=== PATIENT | male | born 1950 | race Caucasian/White ===

== ENCOUNTER 2016-06-16 06:08 | Observation (INO) | payer MEDICARE, OTHER ==
[~2016-06-16] VITALS: Ht 188 cm; Wt 112.6 kg
--- NOTE | ~2016-06-16 | ER ---
PATIENT'S NAME: ROBERTO QUINN [facility] AGE: 65 Y [address] ROOM: [place] [address] LOCATION: [facility] ADMIT DATE: 06/16/2016 ER/Outpatient Report DISCHARGE DATE: FAMILY PHYSICIAN: PHYSICIAN, NO ATTENDING PHYSICIAN: Liu Del Castillo Admission date and time documented on the medical record. I saw the patient at 0625 hours. CHIEF COMPLAINT: Right flank pain. HISTORY OF PRESENT ILLNESS: The patient is a 65-year-old male, who has had right flank pain since this past Monday and Monday, . The patient saw Dr. Allen, urologist in [place], Monday. He has a mid to distal right ureteral stone. He was placed on Flomax, pain medications, and was told to come to the emergency room at [facility] if he had further problems. The patient showed up this morning with persistent right flank pain, not getting any better. He is not having any dysuria, frequency, or urgency. He continues to have right flank, right groin pain. He has some nausea with one episode of vomiting. No diarrhea. Again, no urinary symptomatology. No chest pain, shortness of breath. No lightheadedness, dizziness, syncope, or near syncope. No headache, eyes, ears, nose, throat, neck, or spine pain. No fall or trauma. No recent colds, coughs, flus, fever, chills, or sweats. No joint or muscle swelling, redness, or pain. No skin eruptions or rash. No history of neuro changes, or psych issues. Does have yxg-dkufhzt-ohlnilatf diabetes mellitus. HOME MEDICATIONS: See attached medication list. ALLERGIES: NONE. SOCIAL HISTORY: Nonsmoker and nondrinker. SIGNIFICANT PAST MEDICAL HISTORY: Mwv-omahpyt-reitppujf diabetes mellitus, dyslipidemia, nephrolithiasis, and colitis. OPERATIONS: None. REVIEW OF SYSTEMS: PATIENT'S NAME: ROBERTO QUINN [facility] AGE: 65 Y [address] ROOM: [address] [address] LOCATION: [facility] ADMIT DATE: 06/16/2016 ER/Outpatient Report DISCHARGE DATE: FAMILY PHYSICIAN: PHYSICIAN, NO ATTENDING PHYSICIAN: Liu Del Castillo All systems reviewed by me are negative with the exception of those discussed in the history of present illness. PHYSICAL EXAMINATION: VITAL SIGNS: Vital signs are reviewed by me on the nurse's chart. See nurse's chart. HEAD: Normocephalic. EYES, EARS, NOSE, AND THROAT: Clear. Mucous membranes moist. NECK: No nuchal rigidity. No findings of adenopathy. No tenderness. SPINE: Nontender. No deformity. LUNGS: Clear. Good air flow. No rales, rhonchi, or wheezes. HEART: Regular. Pulses are palpable. No chest wall or ribcage pain to palpation. ABDOMEN: Soft, nondistended. Some right flank tenderness. No true abdominal pain, guarding, rigidity, rebound, or tenderness. Bowel tones present. No organomegaly or abnormal mass palpable. No true CVA tenderness. EXTREMITIES: Without peripheral edema, cyanosis, or deformity. NEUROVASCULARLY: Intact. SKIN: Clear. No skin eruptions or rash. LABORATORY DATA: CMS was normal except an elevated glucose 135, elevated BUN of 29, elevated creatinine 1.4, and low GFR of 51. White count was 9300, 71 segs, 20 lymphs, 7 monos, 1 eo, and 1 baso. Hemoglobin is 15.5, hematocrit 46.8, and platelet count is 279,000. Urine has not been able to be obtained as yet. CT scan of the abdomen and pelvis with renal stone protocol showed a moderate right hydronephrosis secondary to a distal right 4 x 3 mm right ureteral calculus. The patient has a small nonobstructive left intrarenal calculi. Has diffuse fatty liver, indeterminate 6 mm left lower lobe pulmonary nodule. EMERGENCY DEPARTMENT COURSE: I did start the patient on IV normal saline, fluids. Gave him Toradol 30 mg IV for pain; Zofran 4 mg IV for nausea, vomiting; Dilaudid 1 mg IV for pain. Gave him IV normal saline, fluids at 100 mL an hour. Discussed the patient with Dr. Allen urologist. Dr. Allen wanted the patient admitted outpatient for cystoscopy and stone extraction. IMPRESSION: 1. Right flank pain secondary to a distal right 4 x 3 mm ureteral stone with moderate hydronephrosis, hematuria. 2. Ncm-tiarufj-oygyykvce diabetes mellitus. 3. Dyslipidemia. 4. Renal insufficiency. PATIENT'S NAME: ROBERTO QUINN [facility] AGE: 65 Y [address] ROOM: [address] [address] LOCATION: [facility] ADMIT DATE: 06/16/2016 ER/Outpatient Report DISCHARGE DATE: FAMILY PHYSICIAN: PHYSICIAN, SAUMYA ATTENDING PHYSICIAN: Liu Del Castillo PLAN: The patient was admitted to the hospital outpatient observation. The patient will undergo cystoscopy with stone extraction per Dr. Allen, urologist. I did discuss the patient with Dr. Del Castillo, hospitalist. Dr. Del Castillo will admit the patient to the hospital med/surg. Discussion with the patient concerning my findings and recommendations, he understands. MD COLE WYLIE/modl /[id number] d: 06/16/16 1426 t: 06/17/16 0610, OUTPATIENT REPORT
--- NOTE | ~2016-06-16 | HP ---
PATIENT'S NAME: ROBERTO QUINN [facility] AGE: 65 Y [address] ROOM: [place] [address] LOCATION: [facility] ADMIT DATE: 06/16/2016 History & Physical DISCHARGE DATE: FAMILY PHYSICIAN: PHYSICIAN, NO ATTENDING PHYSICIAN: Liu Del Castillo DATE OF SERVICE: CHIEF COMPLAINT: Right flank pain with ureterolithiasis. HISTORY OF PRESENTING ILLNESS: This 65-year-old white male, with a previous history of recurrent ureterolithiasis, ntx-rqfdlpu-kjlzshpim diabetes mellitus, and hyperlipidemia, came to the emergency department this morning with persistent right flank pain. He had actually been seen and evaluated at [place] a couple of days ago by Urology. CT scan demonstrated a right ureteral stone, and it was felt that the stone would likely pass on its own with conservative care. Because of recurrent cramping and aching pain not well controlled with oral hydrocodone, he decided to come to the emergency room for definitive evaluation and management. He denies fever, chills, or sweats. He denies headaches, dizziness, or lightheadedness. He has not had any significant chest pain. He does get short of breath with exertion, but this is not a new problem. Appetite has been good. He eats and drinks normally. No problems with chewing or swallowing. No shima abdominal pain. He stools normally and has been voiding normally. He denies noticing any blood in his stools or black, tarry stools. No dysuria or urgency. He denies numbness, tingling, or weakness in his extremities or any associated physical or constitutional complaints. He does relate that he has not been sleeping well. He complains that he cannot breathe when he lays on his back. PAST MEDICAL HISTORY: ALLERGIES: NO KNOWN DRUG ALLERGIES. ILLNESSES: 1. Nephrolithiasis. 2. Diabetes mellitus, type 2. 3. Hyperlipidemia. CURRENT MEDICATIONS: PATIENT'S NAME: ROBERTO QUINN [facility] AGE: 65 Y [address] ROOM: [place] [address] LOCATION: [facility] ADMIT DATE: 06/16/2016 History & Physical DISCHARGE DATE: FAMILY PHYSICIAN: PHYSICIAN, NO ATTENDING PHYSICIAN: Liu Del Castillo 1. Aspirin 81 mg p.o. daily. 2. Fish oil 1200 mg p.o. daily. 3. Hydrocodone p.r.n. 4. Flomax 0.4 mg p.o. daily. 5. Metformin 850 mg p.o. b.i.d. FAMILY HISTORY: Significant for heart disease in his father who of an IL in his 50s. Mother had diabetes mellitus and Alzheimer disease. SOCIAL HISTORY: He is and lives in [place]. He is currently retired. He has about a 38-mvtb-oyfs history of smoking tobacco, but has been quit for 9 years. Only occasional alcohol use. REVIEW OF SYSTEMS: As per HPI. All other organ systems reviewed and are negative. PHYSICAL EXAMINATION: VITAL SIGNS: Temperature 96, pulse 66, respirations 18, blood pressure 166/74, and O2 saturation 95% on room air. GENERAL: He is very pleasant, cooperative, lying in the bed, in no acute distress. Pain is 2/10 in the right flank. SKIN: Supple, pink, warm, and dry. No obvious rashes. HEENT: Otherwise, normocephalic. Sclerae are nonicteric. Pupils are equal, round, and reactive to light and accommodation. Extraocular movements appear intact. Nasal turbinates normal in appearance. Oropharynx is clear. Mucous membranes are pink and moist. Dentition appears intact. NECK: Supple. No masses or adenopathy. No thyromegaly. No JVD. CHEST WALL: Symmetrical. HEART: Regular without murmurs. LUNGS: Coarse, but diminished. No crackles or wheezes are heard. ABDOMEN: Soft, obese, and nontender. Bowel sounds are present. No masses or hepatosplenomegaly. GENITOURINARY: Not done. RECTAL: Not done. EXTREMITIES: Display no significant clubbing, cyanosis, or edema. NEUROLOGICAL: No focal deficits. LABORATORY AND X-RAY DATA: CBC showed a white blood cell count of 9.3, hemoglobin is 15.5, hematocrit 46.8, and platelets 279. Chemistries revealed BUN and creatinine of 29 and 1.4 respectively, sodium and potassium 140 and 4.2, chloride and CO2 are 107 and 23, calcium is 8.8. AST and ALT 25 and 26. Bilirubin is 0.8. Glucose is minimally elevated at 135. Urinalysis is pending. CT scan per renal stone PATIENT'S NAME: ROBERTO QUINN [facility] AGE: 65 Y [address] ROOM: [facility] [place], [place] [address] LOCATION: [facility] ADMIT DATE: 06/16/2016 History & Physical DISCHARGE DATE: FAMILY PHYSICIAN: PHYSICIAN, NO ATTENDING PHYSICIAN: Liu Del Castillo protocol demonstrates a right mid ureteral stone approximately 4 x 3 mm with associated obstruction and hydronephrosis. ASSESSMENT AND PLAN: 1. Severe right flank pain. We will admit for observation. He already got some relief with IV Dilaudid in the emergency room. We will continue with supportive cares including IV fluids and symptomatic measures including continued IV Dilaudid for relief of pain and Zofran for relief of nausea. 2. Ureterolithiasis with hydronephrosis. We will consult Urology, Dr. Allen. He will likely go for cystoscopy later today. 3. Acute kidney injury secondary to obstructive uropathy. As above, we will hydrate him gently. Continue with normal saline at 100 mL/hour and await urology evaluation and intervention. 4. Diabetes mellitus, type 2. Historically, well controlled. We will utilize Accu-Cheks and sliding scale insulin while he is inpatient. He is going to remain n.p.o. for now. 5. Hyperlipidemia. Continue fish oil. 6. Sleep disturbance. Suggested to him that he should follow up with his primary care provider at the [place] and to consider sleep study and/or additional cardiovascular workup on an outpatient basis. 7. Deep venous thrombosis prophylaxis. We will utilize pneumatic compression devices while he is inpatient. MD FREDI ROSAS/isaiah /[id number] D: 521 T: 608 HISTORY & PHYSICAL
--- NOTE | ~2016-06-16 | DS ---
PATIENT'S NAME: ROBERTO QUINN [facility] AGE: 65 Y [address] ROOM: [id number] [place], [place] [address] LOCATION: [facility] ADMIT DATE: 06/16/2016 Discharge Summary DISCHARGE DATE: 06/17/2016 FAMILY PHYSICIAN: PHYSICIAN, NO ATTENDING PHYSICIAN: Liu Del Castillo FINAL DIAGNOSES: 1. Right renal calculi. 2. Acute kidney injury, secondary to obstructive uropathy. 3. Diabetes mellitus. CONSULTANTS ON THE CASE: Dr. Allen. HOSPITAL COURSE: Please see details of admission in H and P by Dr. Del Castillo. The patient was admitted with a right nephroureterolithiasis and pain. He was started on IV fluids and Dilaudid for pain control. His blood sugars were covered with insulin sliding scale and pneumatics were utilized for DVT prophylaxis. Dr. Allen consulted on the patient and felt he should undergo cystoscopy and stent placement with possible laser lithotripsy. The patient was taken down on 06/16/2016 and underwent stent placement with stone extraction. He tolerated the procedure well. He was brought back to the floor. His night was uneventful. He needed no narcotic pain medications. On the day of 06/17/2016, the patient was felt stable for discharge, and was discharged home in stable condition. DIAGNOSTICS: On admission, CBC shows a white blood cell count of 9.3, hemoglobin 15.5, hematocrit 46.8, and platelets 279. Sodium 140, potassium 4.2, chloride 107, bicarb 23, glucose 135, BUN 29, and creatinine 1.4. Hemoglobin A1c was 6.7%. Accu-Cheks ranged from 84 to 199. On the day of discharge, creatinine remained at 1.4. RADIOLOGY REPORT: CT of the abdomen and pelvis shows moderately obstructing 4- mm stone in the distal right ureter at the level of the pelvic inlet, moderate perinephric edema seen on the right as well. DISCHARGE INSTRUCTIONS: The patient is discharged home and follow up with Dr. Orellana on 06/22/2016. He needs to have BMP drawn at that appointment as well. Follow up with Dr. Allen on 06/28/2016, for cystoscopy and stent removal. Activity is as tolerated. Weightbearing status is as tolerated. Diet is diabetic. DISCHARGE MEDICATIONS: 1. Flomax 0.4 mg daily. 2. Metformin 1000 mg twice daily. 3. Pravastatin 40 mg daily. PATIENT'S NAME: ROBERTO QUINN [facility] AGE: 65 Y [address] ROOM: [address] [place] [id number] LOCATION: [facility] ADMIT DATE: 06/16/2016 Discharge Summary DISCHARGE DATE: 06/17/2016 FAMILY PHYSICIAN: , SAUMYA ATTENDING PHYSICIAN: Liu Del Castillo 4. Aspirin 81 mg daily. 5. Fish oil 1200 mg daily. We do appreciate participating in this patient's care and thank you very much for the ability to serve him while hospitalized at [facility]. Time spent coordinating details of discharge was less than 30 minutes of which was spent coordinating with consulting physicians, care management, completion of medication reconciliation, and education to the patient and family on the above-mentioned diagnoses. JULIANO SIN FOR TERESSA HATHAWAY MD ANSHUL/modl /[id number] d: 06/18/16518 t: 06/21/16 1451, DISCHARGE SUMMARY
--- NOTE | ~2016-06-16 | CON ---
PATIENT'S NAME: ROBERTO QUINN [facility] AGE: 65 Y [address] ROOM: [place] [address] LOCATION: [facility] ADMIT DATE: 06/16/2016 Consultation DISCHARGE DATE: FAMILY PHYSICIAN: PHYSICIAN, NO ATTENDING PHYSICIAN: Liu Del Castillo DATE OF CONSULTATION: 06/16/2016 REFERRING PHYSICIAN: KENTON TRACY MD CHIEF COMPLAINT: Right flank pain. HISTORY OF PRESENT ILLNESS: The patient is a pleasant 65-year-old male, who presented with acute onset of right flank pain this morning. The patient does have a history of recurrent nephrolithiasis and has required interventions in the past for stones that he has not been able to pass on his own. The patient was recently seen in the emergency room in [place] on June 13, 2016, with right flank pain where he was found to have a 3 x 5 mm ureteral calculus in the right ureter causing hydronephrosis as well as a small nonobstructing left nephrolithiasis. At that time, the patient had opted for observation with conservative management, and I had seen him in clinic on June 14, 2016, where we had kept him on some tamsulosin with a trial of stone passage and pain control. The patient is obviously not doing well with pain control and was admitted for IV narcotic medication requirement earlier today by the hospitalist team. His white blood cell count was within normal limits at 9.3, and his serum creatinine level was slightly up at 1.4. He had a urinalysis on June 13, 2016, with only rare bacteria and was negative for nitrites and leukocytes. The patient, otherwise, has no further questions or concerns at this time. PAST MEDICAL HISTORY: 1. Recurrent nephrolithiasis. 2. Diabetes mellitus. 3. Hyperlipidemia. PAST SURGICAL HISTORY: 1. Prior ureteroscopy with stone extraction. 2. Right arm surgery. 3. Hernia repair. FAMILY HISTORY: The patient denies any known family history of genitourinary abnormalities or malignancy. SOCIAL HISTORY: PATIENT'S NAME: ROBERTO QUINN [facility] AGE: 65 Y [address] ROOM: [place] [address] LOCATION: [facility] ADMIT DATE: 06/16/2016 Consultation DISCHARGE DATE: FAMILY PHYSICIAN: PHYSICIAN, NO ATTENDING PHYSICIAN: Liu Del Castillo The patient is retired and quit smoking nine years ago. He denies any alcohol use. ALLERGIES: NO KNOWN DRUG ALLERGIES. MEDICATIONS: See hospitalization medication reconciliation. REVIEW OF SYSTEMS: A full 10 plus point review of systems was performed with pertinent positive and negative findings included in the History of Present Illness. All other systems were reviewed and are otherwise negative. PHYSICAL EXAMINATION: VITAL SIGNS: The patient's height is 6 feet 2 inches. His weight is 247 pounds. His temperature is 97.9 degrees Fahrenheit, pulse of 49, blood pressure 135/72, respiratory rate 14, and oxygen saturation 93% on room air. CONSTITUTIONAL: The patient is in mild distress, but he is awake and oriented. HEENT: Extraocular muscles are intact. Mucous membranes are moist. No drainage per ears or nose. CARDIAC: Good peripheral perfusion. RESPIRATORY: No audible wheezing or stridor. ABDOMEN: Soft, nontender, and nondistended. MUSCULOSKELETAL: Moves all extremities. NEUROLOGIC: No focal deficits noted. HEMATOLOGIC: No bruises. No active sites of bleeding. PSYCHIATRIC: Normal affect and answers questions appropriately. IMAGING: I personally reviewed the images from his recent CT scan, consistent with findings noted above in History of Present Illness. IMPRESSION: 4 mm distal right ureteral calculus. PLAN: I had a long discussion today with the patient regarding his treatment options for his distal right ureteral calculus. His options again to include observation, ureteroscopy with laser lithotripsy and stent placement. He has not been doing well with the trial of stone passage with continued pain, now requiring IV narcotics. The patient would like to proceed with operative intervention. We will plan to take him back to the operating room again for right ureteroscopy, laser lithotripsy, ureteroscopic stone extraction, and PATIENT'S NAME: ROBERTO QUINN [facility] AGE: 65 Y [address] ROOM: [address] [address] LOCATION: [facility] ADMIT DATE: 06/16/2016 Consultation DISCHARGE DATE: FAMILY PHYSICIAN: PHYSICIAN, NO ATTENDING PHYSICIAN: Liu Del Castillo stent placement. His questions and concerns were addressed, and he has no further at this time. MD MAG SPRING/isaiah /[id number] d: 06/16/16 2337 t: 06/17/16 2240, CONSULTATION REPORT
--- NOTE | ~2016-06-16 | OR ---
PATIENT'S NAME: ROBERTO QUINN [facility] AGE: 65 Y [address] ROOM: [address] [place], [place] [address] LOCATION: [facility] ADMIT DATE: 06/16/2016 OR/Procedure Report DISCHARGE DATE: FAMILY PHYSICIAN: PHYSICIAN, NO ATTENDING PHYSICIAN: Liu Del Castillo SURGEON: Kenton Allen MD ELECTRIC WIRER: None. DATE OF PROCEDURE: 06/16/2016 PREOPERATIVE DIAGNOSIS: Right distal ureteral calculus. POSTOPERATIVE DIAGNOSIS: Right distal ureteral calculus. OPERATIVE PROCEDURE: 1. Right ureteroscopy with laser lithotripsy of ureteral stone. 2. Right ureteroscopy with ureteroscopic stone extraction. 3. Cystoscopy with placement of indwelling right ureteral stent. ANESTHESIA: Laryngal mask airway anesthesia. INDICATIONS FOR PROCEDURE: The patient is a pleasant 65-year-old male with history of recurrent nephrolithiasis, who recently presented with a 5 mm right ureteral calculus. The patient was not doing well with a trial of stone passage and opted for surgical intervention. The patient was explained the risks, benefits, indications, and alternatives to above procedure and wished to proceed and consented freely. DESCRIPTION OF OPERATION: The patient was brought back to the operating room, where he was placed on the OR table in the supine position. A surgical time- out was called where the patient identification, surgical site, and procedure was then verified. The patient underwent successful administration of laryngal mask airway anesthesia. The patient was then moved and placed in a low lithotomy position where his genital area was then prepped and draped in usual sterile fashion. I began by advancing a rigid cystoscope easily into the patient's urinary bladder. His anterior urethra was within normal limits. His posterior urethra was notable for ddpbecsk-yg-khdmbs bilobar hyperplasia of the prostate. He did not have a median prostatic lobe. His bladder was negative for any bladder tumors, cellules, or diverticula. He did have a moderate bladder trabeculations noted throughout. His ureteral orifices were noted to be in their orthotopic location. I then carefully advanced a Sensor guidewire cannulating the patient's right ureteral orifice. I then emptied the patient's bladder and then re-entered with a rigid ureteroscope. I was able to carefully navigate into his right distal ureter utilizing a second guidewire. I came across the distal stone, which appear to be too large to extract in whole and so I opted to use the holmium laser fiber, 600 micron PATIENT'S NAME: ROBERTO QUINN [facility] AGE: 65 Y [address] ROOM: [address] [address] LOCATION: [facility] ADMIT DATE: 06/16/2016 OR/Procedure Report DISCHARGE DATE: FAMILY PHYSICIAN: PHYSICIAN, NO ATTENDING PHYSICIAN: Liu Del Castillo fiber to carefully fragment the stone into several smaller pieces. I then used the Melvin stone basket to carefully entrap the fragments and these were sent for stone analysis. I carefully surveyed the ureter again and there was no evidence of any ureteral injury nor was there any evidence of any large residual stones remaining. Then, over the remaining wire, I advanced a 4.8- Burundian multi-length ureteral stent deploying it noting good curl fluoroscopically in the patient's right renal collecting system as well as a good curl fluoroscopically and visually within the patient's bladder. I then emptied the patient's bladder and the patient then taken out of the lithotomy position where he was then awoken from general anesthesia, extubated, and transferred to recovery bed and transported to the recovery room in good condition. COMPLICATIONS: None. DRAINS: Indwelling 4.8-Burundian multi-length right ureteral stent. SPECIMEN: Stone for stone analysis. FOLLOWUP PLAN: We will plan to have the patient follow back up in Urology Clinic in [place], June 28, 2016 for cystoscopy and stent removal. KENTON ALLEN MD GP/modl /[id number] d: 06/17/16 004 t: 06/17/16 2243, OPERATIVE SUMMARY
[2016-06-16 06:39] LABS: BASOPHIL # 0.1 K/uL (0.0-0.2); BASOPHIL % 0.8 %; EOSINOPHIL # 0.1 K/uL (0.0-0.5); EOSINOPHIL % 0.6 %; HEMATOCRIT 46.8 % (37.0-53.0); HEMOGLOBIN 15.5 g/dL (11.0-16.0); IMMATURE GRANULOCYTE % 0.2 %; LYMPHOCYTE # 1.9 K/uL (0.8-4.0); LYMPHOCYTE % 20.4 %; MCH 27.1 pg (27.0-34.0); MCHC 33.1 gm/dL (32.0-36.5); MONOCYTE # 0.7 K/uL (0.0-1.0); MONOCYTE % 7.4 %; NEUTROPHIL # (ANC) 6.6 K/uL (1.4-9.0); NEUTROPHIL % 70.6 %; NRBC % 0 /100WBC (0-0.00); PLATELET COUNT 279 K/uL (150-450); RBC 5.71 M/uL (3.50-5.50); RDW-CV 14.1 % (11.9-14.6); WBC 9.3 K/uL (4.0-11.0)
[2016-06-16 07:01] LABS: ALBUMIN 4.2 gm/dL (3.5-5.0); ANION GAP 14.2 (10.0-19.0); CALCIUM 8.8 mg/dL (8.5-10.5); CREATININE 1.4 mg/dL (0.6-1.3); POTASSIUM 4.2 mMol/L (3.7-5.1); TOTAL BILIRUBIN 0.8 mg/dL (0.0-1.5); TOTAL PROTEIN 7.8 g/dL (6.0-8.4)
--- NOTE | 2016-06-16 11:06 | NUR ---
On Monday patient felt like he had a kidney stone (he has had them in the past and knows the symptoms). He went to [facility] where they gave him some fluids. He then saw Dr. Allen who started him on Flomax hoping that may help. He was instructed to come to the [facility] ER if his pain was worse in a couple days. Well, his pain was worse so he came to the ER at 0600.
[2016-06-16] MEDS ORDERED: FLOMAX0.4 MG PO (11:18)
[2016-06-16] MEDS ORDERED: GLUCOPHAGE1000 MG PO (11:18)
[2016-06-16] MEDS ORDERED: PRAVACHOL80 MG PO (11:18)
[2016-06-16] MEDS ORDERED: ADVIL200 MG PO (11:19)
[2016-06-16] MEDS ORDERED: ASPIRIN LO-DOSE81 MG PO (11:19)
[2016-06-16] MEDS ORDERED: FISH OIL 1,2001 EACH PO (11:19)
--- NOTE | 2016-06-16 17:08 | NUR ---
Significant Event: Pt AOx3. VSS, still asymptomatic with heart rate of upper 40s. IV intact. Remains on IV fluids. Voided x 1 200 mL, dark urine. Up with one assist. NPO. Dilaudid IV for pain. Zofran x 1 upon admission. Down for cytoscopy and ureteroscopy by Dr. Allen at 1700. Follow up:
[2016-06-17 04:39] LABS: BASOPHIL % 0.2 %; HEMATOCRIT 42.9 % (37.0-53.0); HEMOGLOBIN 14.2 g/dL (11.0-16.0); IMMATURE GRANULOCYTE % 0.2 %; LYMPHOCYTE # 0.9 K/uL (0.8-4.0); LYMPHOCYTE % 14.3 %; MCHC 33.1 gm/dL (32.0-36.5); MCV 81.6 fl (83.0-98.0); MONOCYTE # 0.3 K/uL (0.0-1.0); MONOCYTE % 4.1 %; MPV 10.7 fl (9.4-12.4); NEUTROPHIL % 81.2 %; NRBC % 0 /100WBC (0-0.00); PLATELET COUNT 279 K/uL (150-450); RBC 5.26 M/uL (3.50-5.50); RDW-CV 14.1 % (11.9-14.6); WBC 6.2 K/uL (4.0-11.0)
--- NOTE | 2016-06-17 04:43 | NUR ---
Significant Event: PATIENT RETURN FROM PACU AT 0 TO FLOOR. ON ROOM AIR. IV FLUIDS INFUSING WELL. HAD A GENERAL. HAD LAZER OF STONES, STENT PLACED IN RT URETER, HAD CYSTO AND RETROSCOPY. HAD VOIDED X 2. URINE BROWNISH TINT. 575ML. HAD SMALL LOOSE YELLOWISH BM IN BR. AMBULATED IN HALLS WITH ONE ASSIST, GAITBELT AND IV POLE. GAIT STEADY WHEN UP AMBULATING. REPOSITIONED SELF IN BED. BILATERAL CALF PNEUMATICS ON. VITAL SIGNS ROUTINE NOW. BP 180/81, BP 157/81, BP 175/76 AFTER RETURN TO ROOM, DENIES PAIN. LATER BP 127/64, BP 11O/52. INCENTIVE USAGE [id number]. SLIGHT DISCOMFORT WHEN URINATING, NO BURNING. AT HS ACCUCHECK WAS 106. Follow up:
[2016-06-17 04:51] LABS: ALBUMIN 3.5 gm/dL (3.5-5.0); CALCIUM 8.3 mg/dL (8.5-10.5); CREATININE 1.4 mg/dL (0.6-1.3)
[2016-06-17 04:58] LABS: ANION GAP 13.5 (10.0-19.0); POTASSIUM 4.5 mMol/L (3.7-5.1)
[2016-07-12] MEDS ORDERED: NORCO 5-325 TA1 EACH PO (12:30)
== END 2016-06-17 12:30 | disposition disaster alternative care site (69) ==
LOC: GMED 06:08 → G3N 08:17
PROVIDERS: Emergency Medicine; ADMIT Family Medicine
PROC: 0TF68ZZ Fragmentation in Right Ureter, Via Natural or Artificial Opening Endoscopic (ICD-10-PCS; principal; 2016-06-16)
PROC: 0T768DZ Dilation of Right Ureter with Intraluminal Device, Via Natural or Artificial Opening Endoscopic (ICD-10-PCS; 2016-06-16)
DX: N20.2 Calculus of kidney with calculus of ureter (principal); E11.9 Type 2 diabetes mellitus without complications; N17.9 Acute kidney failure, unspecified; E78.5 Hyperlipidemia, unspecified; N13.9 Obstructive and reflux uropathy, unspecified; Z87.891 Personal history of nicotine dependence; Z98.890 Other specified postprocedural states; Z79.82 Long term (current) use of aspirin; Z79.84 Long term (current) use of oral hypoglycemic drugs; Z79.899 Other long term (current) drug therapy
CPT/HCPCS: C1769; C2617; G0378; J0690; J1100; J1170; J1885; J2405; J7030

== ENCOUNTER → 2016-07-12 | Day surgery (SDC) | payer MEDICARE, OTHER ==
[~2016-07-12] VITALS: Ht 188 cm; Wt 105.5 kg
[~2016-07-12] MED LIST: ADVIL200 MG PO; ASPIRIN LO-DOSE81 MG PO; FISH OIL 1,2001 EACH PO; FLOMAX0.4 MG PO; GLUCOPHAGE1000 MG PO; NORCO 5-325 TA1 EACH PO; PRAVACHOL80 MG PO
--- NOTE | ~2016-07-12 | OR ---
PATIENT'S NAME: ROBERTO QUINN [facility] AGE: 65 Y [address] ROOM: [place] [address] LOCATION: [facility] ADMIT DATE: 07/12/2016 OR/Procedure Report DISCHARGE DATE: FAMILY PHYSICIAN: Hernán Orellana MD ATTENDING PHYSICIAN: KENTON ALLEN SURGEON: Kenton Allen MD FITTER PLACER: None. DATE OF PROCEDURE: 07/12/2016 PREOPERATIVE DIAGNOSIS: Left nephrolithiasis. POSTOPERATIVE DIAGNOSIS: Left nephrolithiasis. PROCEDURE: Left extracorporeal shockwave lithotripsy. ANESTHESIA ADMINISTERED: MAC INDICATIONS FOR PROCEDURE: The patient is a pleasant 65-year-old male with history of left renal calculus. The patient was explained the risks, benefits, indications, and alternatives to above procedure and wished to proceed and consented freely. DESCRIPTION OF OPERATION: The patient was brought back to the operating room, where he was placed on the lithotripsy treatment bed in the supine position. A procedural time-out was called where the patient identification, procedure site, and procedure was then verified. The patient then underwent successful administration of monitored anesthesia care. The patient was then kept in the supine position where we then brought the left renal calculus in the focal point using fluoroscopy. We began performing shockwave lithotripsy starting at 16 kilovolts and sequentially working up to 24 kilovolts in energy. It did appear that we had nice fragmentation by fluoroscopic monitoring and approximately 2200 shocks were delivered to the stone. The patient did tolerate the procedure well. The patient was then awoken from monitored anesthesia care, transferred to the recovery bed, and transported to the recovery room in good condition. KENTON ALLEN MD GP/modl /[id number] d: 07/12/16 1238 t: 07/13/16 0838, OPERATIVE SUMMARY
== END | disposition disaster alternative care site (69) ==
LOC: GPOC 07-05 14:00 → GSDC 07:00
PROC: 0TF4XZZ Fragmentation in Left Kidney Pelvis, External Approach (ICD-10-PCS; principal; 2016-07-12)
DX: N13.2 Hydronephrosis with renal and ureteral calculous obstruction (principal); E11.9 Type 2 diabetes mellitus without complications
CPT/HCPCS: J1956; J2001; J7030